=== PATIENT | male | born 1990 | race Caucasian/White ===

== ENCOUNTER → 2019-06-16 | Outpatient (CLI) | payer BC ==
--- NOTE | 2019-06-16 15:14 | Diagnostic Imaging Report ---
EXAMINATION: Lumbar spine radiographs, 3 views. COMPARISON: None. HISTORY: 29-year-old male, low back pain. FINDINGS: There are 5 lumbar-type vertebral bodies. There is no identified compression deformity or fracture. The lumbar disc heights are well preserved. There are no prominent endplate degenerative changes. The facet joints are unremarkable. Unremarkable appearance of the sacroiliac joints. IMPRESSION: 1. Unremarkable radiographic evaluation of the lumbar spine. Dictated by: Dictated on workstation # [id number]
== END ==
LOC: RAD 14:23
PROVIDERS: ATTEND Family Medicine
DX: M54.5 Low back pain (principal)
CPT/HCPCS: 72100